=== PATIENT | female | born 1955 | race Caucasian/White ===

== ENCOUNTER → 2018-04-25 | Outpatient (CLI) | payer MEDICARE, OTHER ==
[~2018-04-25] MED LIST: DOXY50CA PO; GADOBUTROL 10 MMOL/10 ML VIAL IV ONE; HYDR-2145 PO
--- NOTE | 2018-04-26 15:25 | KCIC ---
MRI of the abdomen with and without contrast and without comparison for disorder of the adrenal gland. Abnormality seen on recent CT scan, history of kidney stones. TECHNIQUE: Multiplanar multisequence MR imaging of the abdomen is obtained both before and after administration of 8 cc of gadolinium Gadovist IV contrast medium. FINDINGS: There is mucus and debris within the stomach and duodenum. On T2-weighted imaging, a 1.4 cm central gallstone is seen, along with a large amount of layering debris which contains innumerable tiny stones as well. No intra or extrahepatic biliary ductal dilatation is evident. Portal vein is patent. Pancreas is grossly unremarkable on all sequences. Spleen is normal. Right adrenal gland is normal. The left adrenal gland is notable for a 2 cm round circumscribed mass along the inferior aspect of the lateral limb which demonstrates signal loss on opposed phase imaging consistent with intravoxel fat. 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 The left kidney is notable for a simple renal cyst measuring 1.2 cm. Right kidney is unremarkable. There is no hydronephrosis involving either kidney. No pathologic adenopathy is seen and no free or loculated fluid collections are evident. No significant soft tissue or osseous abnormalities are identified. 1. 2 cm left adrenal mass with gross signal loss on opposed phase imaging, which has a sensitivity of roughly 95% for benign lipid rich adrenal adenoma. Lipid-containing adrenal cortical carcinoma, pheochromocytoma, and metastasis are extremely rare. 2. Cholelithiasis without evidence of cholecystitis. 3. Simple left renal cyst. Electronically signed by: Joaquin Lopez MD (04/26/2018 3:21 PM) [id number]
== END | disposition home or self-care (01) ==
LOC: KCIC MRI 12:54
PROVIDERS: ATTEND Family Medicine
DX: K80.20 Calculus of gallbladder without cholecystitis without obstruction (principal); N28.1 Cyst of kidney, acquired; E27.8 Other specified disorders of adrenal gland; Z87.442 Personal history of urinary calculi
CPT/HCPCS: 74183; A9585

== ENCOUNTER → 2018-06-30 | Day surgery (SDC) | payer MEDICARE, OTHER ==
[~2018-06-30] MED LIST changes: +CHLO25TA10 PO; +FLUT9.9S NS; -GADOBUTROL 10 MMOL/10 ML VIAL IV ONE; +GUAI600T47 PO; +HYDROmorphone 2 MG/ML VIAL IV PRN; +IV RINGERS,LACTATED 1000ML 1,000 ML IV SCH; +LIDOCAINE 1% PF 2 ML VIAL. ID PRN; +MELO7.5T29 PO; +MIRA50TA PO; +MORPHINE SULFATE 4 MG/ML VIAL. IV PRN; +ONDANSETRON PF 4 MG/2 ML VIAL. IV PRN; +PROCHLORPERAZINE 10 MG/2 ML VIAL. IV PRN; +PROPOFOL 20 ML IV ONE; +fentaNYL PF VIAL 100 MCG/2 ML VIAL IV PRN
[2018-06-30 14:55] VITALS: BP 123/58
--- NOTE | 2018-07-01 12:09 | PATHOLOGY ---
[facility] Accession Number: [id number] . 01 Material submitted: . PART A: SIGMOID POLYPS PART B: RECTUM POLYPS . 01 Clinical history: . Screening, abdominal pain . 02 Diagnosis: A. Colon, sigmoid, biopsy: - Hyperplastic polyps, approximately five fragments. . B. Colon, rectum, biopsy: - Hyperplastic polyp, one. (SKM:[facility] 07/01/2018) QTP/07/01/2018 . 02 Electronically signed: . Anant Martinez MD, Pathologist NPI- [id number] . 01 Gross description: . A. Received in formalin labeled "Walter Cordovaa, sigmoid polyps," is a 0.8 x 0.5 x 0.5 cm polypoid piece of amaro soft tissue. The margin is inked and the specimen is sectioned perpendicular to the margin and entirely submitted in cassette A1. Additionally received in the same container are multiple segments of amaro soft tissue measuring 0.7 x 0.3 x 0.1 cm in aggregate dimensions. The specimen is filtered and entirely submitted in cassette A2. . B. Received in formalin labeled "Walter Cordovaa, rectum polyps," is a single segment of amaro soft tissue measuring 0.3 cm in maximum dimension. The specimen is entirely submitted in cassette B1. (TSD; 06/30/2018) TOB/TOB . 02 Pathologist provided ICD-10: K63.5, K62.1 . 02 CPT . 302164, 628942 Specimen Comment: A courtesy copy of this report has been sent to Specimen Comment: [phone], . Specimen Comment: Report sent to / DR PLATT Performed at: [address] [place] [address] [facility] [address], [place] [id number] MD Kavon Burgos MD Phone: [phone] Performed at: [address] [id number] MD Anant Martinez MD Phone: [phone]
== END | disposition home or self-care (01) ==
LOC: ENDOS 12:21
PROVIDERS: ATTEND Internal Medicine Gastroenterology
DX: Z12.11 Encounter for screening for malignant neoplasm of colon (principal); K63.5 Polyp of colon; K62.1 Rectal polyp; K64.0 First degree hemorrhoids; Z88.0 Allergy status to penicillin; Z88.1 Allergy status to other antibiotic agents; M19.90 Unspecified osteoarthritis, unspecified site; Z83.3 Family history of diabetes mellitus; Z82.49 Family history of ischemic heart disease and other diseases of the circulatory system; Z83.71 Family history of colonic polyps; F17.210 Nicotine dependence, cigarettes, uncomplicated; Z79.899 Other long term (current) drug therapy; Z98.890 Other specified postprocedural states; Z87.442 Personal history of urinary calculi
CPT/HCPCS: 45380; 45385; 88305; J2704